=== PATIENT | female | born 1950 | race Caucasian/White ===

== ENCOUNTER 2020-01-16 11:49 | Day surgery (SDC) | payer MEDICARE, OTHER ==
[~2020-01-16 11:49] MED LIST: CHONDR SU A NA/HYALUR INTRAOC KIT (SURGICARE) ONE; EPINEPHRINE INJ/PF 1 MG/1 ML AMPULE ONE; KETOROLAC TROMETHAMINE 0.45% 4 DROP/0.4 ML DROPERETTE OS PRN; LIDOCAINE 1%/PHENYLEPHRINE 1.5% 0.8 ML SYRINGE ONE
[2020-01-16] MEDS: BESIFLOXACIN HCL 0.6% OPH SUSP 5 ML BOTTLE OS PRN ×4 (12:05→12:55)
[2020-01-16] MEDS: CYCLOPENTOLATE 0.2%/PHENYLEPHRINE 1% OPH SOLN 2 ML OS PRN ×3 (12:05→12:29)
[2020-01-16] MEDS: TETRACAINE HCL 0.5% OPH SOLN 4 ML OS PRN ×3 (12:05→12:41)
[2020-01-16] MEDS: TROPICAMIDE 1% OPH SOLN 15 ML OS PRN ×3 (12:05→12:29)
[2020-01-16] MEDS ORDERED: FENTANYL CITRATE INJ/PF 100 MCG/2 ML AMPUL ONE (12:25)
[2020-01-16] MEDS ORDERED: MIDAZOLAM 2 MG/2 ML INJ ONE (12:25)
[2020-01-16] MEDS: DORZOLAMIDE HCL 2%/TIMOLOL MALEAT 0.5% OPH SOLN 10 ML OS PRN ×2 (12:55)
[2020-01-16] MEDS: PREDNISOLONE ACETATE 1% OPH SUSP 5 ML OS PRN ×2 (12:55)
--- NOTE | 2020-01-16 13:03 | Operative Report ---
Operative Report-[facility] Operative Report: DATE OF SURGERY: January 16, 2020 PREOPERATIVE DIAGNOSIS: NUCLEAR CATARACT, LEFT EYE. POSTOPERATIVE DIAGNOSIS: NUCLEAR CATARACT, LEFT EYE. PROCEDURE PERFORMED: PHACOEMULSIFICATION WITH POSTERIOR CHAMBER INTRAOCULAR LENS IMPLANT, LEFT EYE. SURGEON: Elkin Jara DO MEDICATIONS AND ANESTHESIA: Versed: IV Versed Tetracaine drops: 1 to 2 drops given as needed COMPLICATION: None INDICATIONS FOR SURGERY: Medical necessity: Best corrected visual acuity worse than 20/40 secondary to cataracts with impairment of ability to carry out needs or desired activities, blurred vision, visual distortion, reduced contrast sensitivity and/or glare with association functional impairment and supporting documentation/testing, and cataracts causing symptomatic impairment of visual functions not corrected with tolerable changes in glasses or contact lenses interfering with activities of daily life. PROCEDURE: Consent: The risks, benefits and alternatives of this procedures was discussed with the patient. The patient read and signed the consent forms, was identified and was seated in the exam chair. IOL: MX 60 E 16.5 IOL Diopters: Phacoemulsification with posterior chamber intraocular lens implant: The face was prepped with 5% povidone iodine solution, and a few drops of 5% povidone iodine solution was instilled into the inferior fornix. A non-fenestrated drape was placed over the eye and the lids were parted with the speculum. A paracentesis was made with a 15 degree blade, and 1% lidocaine MPF followed by viscoelastic was injected into the anterior chamber. A 2.4 mm metal micro- keratome was used to create a temporal clear corneal incision. A circular anterior capsulorrhexis was created, followed by hydro-dissection and hydro- delineation. The phacoemulsification hand piece was inserted and the nucleus was removed with the Phaco chop technique. The irrigation-aspiration hand piece was used to remove the residual cortex, and vacuum the posterior capsule. The capsular bag was inflated and viscoelastic and the above-mentioned IOL was injected into the eye with care to insert both leaning and trailing haptics in the capsular bag. The irrigation/aspiration hand piece was reinserted to remove residual viscoelastic from the capsular bag and anterior chamber. The corneal incision was hydrated, and anterior chamber was inflated with sterile BSS via the paracentesis site, and found to be watertight. Postop medication:1 drop of prednisolone into operative by followed by 1 drop of Cosopt into operative eye followed by 1 drop of Besivance intraoperative by Other:
== END 2020-01-16 13:24 | disposition home or self-care (01) ==
LOC: SC 11:49
PROVIDERS: ATTEND Ophthalmology
DX: H25.12 Age-related nuclear cataract, left eye (principal); Z87.891 Personal history of nicotine dependence; J45.909 Unspecified asthma, uncomplicated; K21.9 Gastro-esophageal reflux disease without esophagitis; I10 Essential (primary) hypertension; Z88.2 Allergy status to sulfonamides; Z83.511 Family history of glaucoma; Z83.3 Family history of diabetes mellitus; Z82.49 Family history of ischemic heart disease and other diseases of the circulatory system; M19.90 Unspecified osteoarthritis, unspecified site; D57.1 Sickle-cell disease without crisis
CPT/HCPCS: 66984; 00142; V2632; J2250; J3490 ×3; A9270; J0171; J3010; 142

== ENCOUNTER 2020-01-30 09:05 | Day surgery (SDC) | payer MEDICARE, OTHER ==
[~2020-01-30 09:05] MED LIST changes: -CHONDR SU A NA/HYALUR INTRAOC KIT (SURGICARE) ONE; -EPINEPHRINE INJ/PF 1 MG/1 ML AMPULE ONE; +KETOROLAC TROMETHAMINE 0.45% 4 DROP/0.4 ML DROPERETTE OD PRN; -KETOROLAC TROMETHAMINE 0.45% 4 DROP/0.4 ML DROPERETTE OS PRN; -LIDOCAINE 1%/PHENYLEPHRINE 1.5% 0.8 ML SYRINGE ONE
[2020-01-30] MEDS: TROPICAMIDE 1% OPH SOLN 15 ML OD PRN ×3 (09:20→09:40)
[2020-01-30] MEDS: CYCLOPENTOLATE 0.2%/PHENYLEPHRINE 1% OPH SOLN 2 ML OD PRN ×3 (09:20→09:40)
[2020-01-30] MEDS: BESIFLOXACIN HCL 0.6% OPH SUSP 5 ML BOTTLE OD PRN ×4 (09:20→10:16)
[2020-01-30] MEDS: TETRACAINE HCL 0.5% OPH SOLN 4 ML OD PRN ×3 (09:21→09:58)
[2020-01-30] MEDS ORDERED: MIDAZOLAM 2 MG/2 ML INJ ONE (09:39)
[2020-01-30] MEDS ORDERED: FENTANYL CITRATE INJ/PF 100 MCG/2 ML AMPUL ONE (09:39)
[2020-01-30] MEDS: CHONDR SU A NA/HYALUR INTRAOC KIT (SURGICARE) ONE ×2 (10:05→10:08)
[2020-01-30] MEDS: LIDOCAINE 1%/PHENYLEPHRINE 1.5% 1 ML VIAL ONE ×2 (10:05→10:08)
[2020-01-30] MEDS: EPINEPHRINE INJ/PF 1 MG/1 ML AMPULE ONE ×2 (10:05→10:08)
[2020-01-30] MEDS: DORZOLAMIDE HCL 2%/TIMOLOL MALEAT 0.5% OPH SOLN 10 ML OD PRN ×2 (10:16)
[2020-01-30] MEDS: PREDNISOLONE ACETATE 1% OPH SUSP 5 ML OD PRN ×2 (10:16)
--- NOTE | 2020-01-30 15:23 | Operative Report ---
Operative Report-[facility] Operative Report: DATE OF SURGERY: January 30, 2020 PREOPERATIVE DIAGNOSIS: NUCLEAR CATARACT, RIGHT EYE. POSTOPERATIVE DIAGNOSIS: NUCLEAR CATARACT, RIGHT EYE. PROCEDURE PERFORMED: PHACOEMULSIFICATION WITH POSTERIOR CHAMBER INTRAOCULAR LENS IMPLANT, RIGHT EYE. SURGEON: Elkin Jara DO MEDICATIONS AND ANESTHESIA: Versed: IV Versed Tetracaine drops: 1 to 2 drops given as needed COMPLICATION: None INDICATIONS FOR SURGERY: Medical necessity: Best corrected visual acuity worse than 20/40 secondary to cataracts with impairment of ability to carry out needs or desired activities, blurred vision, visual distortion, reduced contrast sensitivity and/or glare with association functional impairment and supporting documentation/testing, and cataracts causing symptomatic impairment of visual functions not corrected with tolerable changes in glasses or contact lenses interfering with activities of daily life. PROCEDURE: Consent: The risks, benefits and alternatives of this procedures was discussed with the patient. The patient read and signed the consent forms, was identified and was seated in the exam chair. IOL: MX 60 E 16.5 IOL Diopters: Phacoemulsification with posterior chamber intraocular lens implant: The face was prepped with 5% povidone iodine solution, and a few drops of 5% povidone iodine solution was instilled into the inferior fornix. A non-fenestrated drape was placed over the eye and the lids were parted with the speculum. A paracentesis was made with a 15 degree blade, and 1% lidocaine MPF followed by viscoelastic was injected into the anterior chamber. A 2.4 mm metal micro- keratome was used to create a temporal clear corneal incision. A circular anterior capsulorrhexis was created, followed by hydro-dissection and hydro- delineation. The phacoemulsification hand piece was inserted and the nucleus was removed with the Phaco chop technique. The irrigation-aspiration hand piece was used to remove the residual cortex, and vacuum the posterior capsule. The capsular bag was inflated and viscoelastic and the above-mentioned IOL was injected into the eye with care to insert both leaning and trailing haptics in the capsular bag. The irrigation/aspiration hand piece was reinserted to remove residual viscoelastic from the capsular bag and anterior chamber. The corneal incision was hydrated, and anterior chamber was inflated with sterile BSS via the paracentesis site, and found to be watertight. Postop medication: 1 drop of prednisolone into operative by followed by 1 drop of Cosopt into operative eye followed by 1 drop of Besivance intraoperative by other:
== END 2020-01-30 10:56 | disposition home or self-care (01) ==
LOC: SC 09:05
PROVIDERS: ATTEND Ophthalmology
DX: H25.11 Age-related nuclear cataract, right eye (principal); Z98.42 Cataract extraction status, left eye; Z87.891 Personal history of nicotine dependence; J45.909 Unspecified asthma, uncomplicated; K21.9 Gastro-esophageal reflux disease without esophagitis; I10 Essential (primary) hypertension
CPT/HCPCS: 66984; V2632; J2250; J3490 ×2; A9270; J0171; 142; J3010

== ENCOUNTER → 2020-03-13 | Outpatient (CLI) | payer MEDICARE, OTHER ==
--- NOTE | 2020-03-13 13:28 | WOMENS IMAGING REPORT ---
EXAM DESCRIPTION: BONE DENSITY HIP/SPINE IMAGES COMPLETED DATE/TIME: 03/13/2020 1:04 pm REASON FOR STUDY: M81.0 AGE-RELATED OSTEOPOROSIS W/O CURRENT PATHOLOGICAL FRACTURE M81.0 AGE-RELATE D OSTEOPOROSIS W/O CURRENT PATHOLOGICAL FRAC Z12.31 ENCNTR SCREEN MAMMOGRAM FOR MALIGNANT NEOPLASM O F JAKE COMPARISON: None. TECHNIQUE: Dual-Energy X-ray Absorptiometry (DEXA) of the AP Spine and Hip. LIMITATIONS: None. FINDINGS: LUMBAR SPINE: The bone mineral density (BMD) measured from L1-L4 in the AP projection correlates with a T-score of -2.1, which is osteopenia as defined by the World Health Organization. BMD Change vs Baseline: N/A HIP: The bone mineral density (BMD) measured in the left hip correlates with a T-score of -0.9 in the femo ral neck, which is normal as defined by the World Health Organization. BMD Change vs Baseline: N/A 10 year Fracture Risk Assessment: Major Osteoporotic Fracture: Not available. Hip Fracture: Not available. IMPRESSION: 1. LUMBAR SPINE WHO CLASSIFICATION: OSTEOPENIA. 2. HIP WHO CLASSIFICATION: NORMAL. OVERALL ASSESSMENT: WHO CLASSIFICATION: NORMAL. COMMENT: The World Health Organization defines low BMD as follows: T-score: Normal: At or above -1.0 Osteopenia: Between -1.0 and -2.5 Osteoporosis: At or below -2.5 without fractures Established osteoporosis: At or below -2.5 with fractures In general, you may wish to consider: Diagnosis Treatment Follow-up DEXA Normal BMD Prevention 2-3 years Osteopenia Prevention/Therapy 1-2 years Osteoporosis Therapy Yearly TECHNICAL DOCUMENTATION: JOB ID: [id number] [employer]- All Rights Reserved Reading location - IP/workstation name: [email or web address]
--- OUTSIDE RECORDS SUMMARY | 2020-03-14 15:27 | XMS REPORT ---
:1950 Demographics Address [address] [place] [address] Email Address Preferred Language [id number] Marital Status Unknown Christian Affiliation Unknown Race Unknown Additional Race(s) Unavailable Unavailable Ethnic Group Unknown Author Organization [facility] Address [facility] [address] [place] [address] Care Team Providers Name Role Phone Saman JOHNSON Attending Clinician Unavailable Iain Attending Clinician Unavailable TANJA HU Attending Clinician Unavailable Silvio GARCIA Attending Clinician Unavailable Allergies, Adverse Reactions, Alerts Allergy Allergy Status Severity Reaction(s) Onset Inactive Treating C omments Name Type Date Date Clinician AMOXICILLIN Drug Active Unknown allergy - 00:00: 00 ESTROGENS, Drug Active Unknown CONJUGATED allergy 05-31 00:00: 00 amoxicillin Allergy to Active Unknown ([id number] substance 6-05 ) 00:00: 00 Horse Allergy to Active Mild dander substance 6-05 00:00: 00 Sulfa Allergy to Active Mild (Sulfonamid substance 6-05 e 00:00: Antibiotics 00 ) ([id number] ) HORMONES Allergy to Active Mild SYNTH substance - 00:00: 00 Sulfa Allergy to Inactive Mild UNKNOWN (Sulfonamid Substance e Antibiotics ) ([id number] ) Medications Ordered Filled Start Stop Current Ordering Indication Dosage Frequency Signature Comments Components Medication Medication Date Date Medication? Clinician (SIG) Name Name Acetaminoph 2019- No 1 Every 6 en/Hydrocod 6-05 06-06 Hours as one Bitart 11:56: 00:00 needed for (Ohiopyle*) 00 :00 Pain 5/325MG TAB Acetaminoph No Kaitlynn Anguiano 1 Every 6 en/Hydrocod 6-05 Nayan Bashir Hours as one Bitart 00:00: needed for (Ohiopyle*) 00 Pain 5/325MG Tab Acetaminoph 2018- No 1 Every 4 en/Hydrocod 9- 06-05 Hours as one Bitart 13:32: 00:00 needed for (Ohiopyle*) 5 00 :00 Pain Mg/325 Mg TAB Naproxen No 500 Twice Per (Naprosyn*) 01-28 Day 500 Mg 13:32: 00:00 TABLET 00 :00 Acetaminoph No Brayan M 1 Every 4 en/Hydrocod 01-28 Pa-C Hours as one Bitart 00:00: 00:00 Ryan needed for (Ohiopyle*) 5 00 :00 Pain Mg/325 Mg Tab, 1 Tab Oral Naproxen No Brayan M 500 Twice Per (Naprosyn*) 01-28 Pa-C Day 500 Mg 00:00: 00:00 Ryan Tablet, 500 00 :00 Mg Oral Acetaminoph No 1 Q 6-8 Hrs en/Hydrocod 12-29 Prn Pain one Bitart 11:56: 00:00 No driving (Hydrocodon 00 :00 or heavy -Acetaminop lifting. hen 5-500) May cause 5 Mg/500 Mg drowsiness TAB . Ibuprofen No 1 Tid Prn (Motrin 800 12-29 Pain TAKE Mg) 800 Mg 11:56: 00:00 WITH FOOD TAB 00 :00 Trimethopri No 2 Twice Per m/Sulfameth 12-29 Day oxazole 11:56: 00:00 (Bactrim Ds 00 :00 Tablet) 1 Ea TAB Acetaminoph No Elkin C 1 Q 6-8 Hrs en/Hydrocod 12-29 Dellaria Prn Pain one Bitart 00:00: 00:00 Md (Hydrocodon 00 :00 -Acetaminop hen 5-500) 5 Mg/500 Mg Tab, 1 Tablet Oral Ibuprofen No Elkin Lozada 1 Tid Prn (Motrin 800 12-2905 Dellaria Pain Mg) 800 Mg 00:00: 00:00 Md Tab, 1 00 :00 Tablet Oral Trimethopri No Elkin C 2 Twice Per m/Sulfameth 12-29 Dellaria Day oxazole 00:00: 00:00 Md (Bactrim Ds 00 :00 Tablet) 1 Ea Tab, 2 Tablet Oral Alendronate No 35 Once Every Sodium Week (Fosamax*) 35 Mg Tablet Esomeprazol No 40 Daily e Magnesium Before (Nexium*) Breakfast 40 Mg Capcr Fluticasone No 2 Twice Per Propionate Day (Flovent 220 Mcg Hfa*) 120 Puff/12 Gm Aero Olmesartan/ No 1 Once Per Hctz Day (Benicar Hct 40/25MG*) 40 Mg/25 Mg Tab Zafirlukast No 20 Twice Per (Accolate*) Day 20 Mg Tablet Alendronate Yes 35 Once Every Sodium Week (Fosamax*) 35 Mg TABLET Fluticasone Yes 2 Twice Per Propionate Day (Flovent 220 Mcg Hfa*) 120 Puff/12 Gm AERO Metoprolol Yes 100 Once Per Succinate Day (Toprol Xl*) 100 Mg TAB.ER.24H Olmesartan Yes 40 Once Per (Benicar*) Day 40 Mg TABLET Omeprazole Yes 20 Daily (Prilosec*) Before 20 Mg CAPCR Breakfast Zafirlukast Yes 20 Twice (Accolate*) Daily 20 Mg Before TABLET Meals Esomeprazol 2020- No 40 Daily e Magnesium 06- Before (Nexium*) 00:00 Breakfast 40 Mg CAPCR :00 Olmesartan/ 2020- No 1 Once Per Hctz 10-05 Day (Benicar 00:00 Hct :00 40/25MG*) 40 Mg/25 Mg TAB Problems Condition Condition Condition Status Onset Resolution Last Treatin g Comments Name Details Category Date Date Treatment Clinician Date Knee Problem Inactiv contusion e 10-04 11:55: 00 Head injury Problem Inactiv e 01-28 13:32: 00 Neck strain Problem Inactiv e 01-28 13:32: 00 Sacral Problem Inactiv contusion e 01-28 13:32: 00 Thoracic Problem Inactiv compression e 01-28 fracture 13:32: 00 Wrist Problem Inactiv sprain e 01-28 13:32: 00 Contusion Contusion Problem Active of sacrum of sacrum Sprain of Sprain of Problem Active wrist wrist Injury of Injury of Problem Active head head Compression Compression Problem Active fracture of fracture of thoracic thoracic vertebra vertebra Strain of Strain of Problem Active neck muscle neck muscle Contusion Contusion Problem Active of knee of knee Fever Fever Problem Active Headache Headache Problem Active Procedures Procedure Date / Time Performed Performing Clinician Devi e Annual Wellness Visit, Initial 2020-02-05 10:30:00 Results Test Description Test Time Test Comments Text Results Atomic Results Result Comments Cerebrospinal fluid xanthochromia detection 2019-10-06 17:50:00 Test Item Value Reference Range Comments CSF Xanthochromia Comment (test code = 70165-7) NEGATIVE NEGATIVE Cerebrospinal fluid color zkrsapdyrdgyqk1062-61-34 17:50:00 Test Item Value Reference Range Comments CSF Color (test code = 40097-8) RED Cerebrospinal fluid appearance pgkzkeqxsft7047-43-56 17:50:00 Test Item Value Reference Range Comments CSF Appearance (test code = 32845-9) HAZY Manual cerebrospinal fluid white blood cell avhjd2935-56-03 17:50:00 Test Item Value Reference Range Comments CSF WBC (test code = 806-0) 9 0-5 A Di fferential will be performed on a Cell Count wit h>10 WBCs present. Cerebrospinal fluid erythrocyte gbcrg8132-81-21 17:50:00 Test Item Value Reference Range Comments CSF RBC (test code = 35141551) 6963 0-1 CSF Cell Count Tube #2019-10-06 17:50:00 Test Item Value Reference Range Comments CSF Cell Count Tube # (test code = CSF Cell Count Tube # 1 Tube #) Glucose [id number] 17:50:00 Test Item Value Reference Range Comments CSF Glucose (test code = 80605939) 56 40-70 Protein [id number] 17:50:00 Test Item Value Reference Range Comments CSF Total Protein (test code = 65219244) 92.5 15.0-40 .0 Blood leukocytes automated count (number/volume)2019-10-06 15:45:00 Test Item Value Reference Range Comments White Blood Count (test code = 6690-2) 10.3 3.6-11.1 Blood erythrocytes automated count (number/volume)2019-10-06 15:45:00 Test Item Value Reference Range Comments Red Blood Count (test code = 789-8) 4.42 3.69-4.88 Blood hemoglobin measurement (mass/volume)2019-10-06 15:45:00 Test Item Value Reference Range Comments Hemoglobin (test code = 718-7) 12.5 11.4-14.4 Automated blood hematocrit (volume fraction)2019-10-06 15:45:00 Test Item Value Reference Range Comments Hematocrit (test code = 4544-3) 38.4 33.3-41.4 Automated erythrocyte mean corpuscular bmsddo5720-51-23 15:45:00 Test Item Value Reference Range Comments Mean Corpuscular Volume (test code = 787-2) 87.0 79.3 -94.8 Automated erythrocyte mean corpuscular hemoglobin (mass per erythrocyte) 2019-10-06 15:45:00 Test Item Value Reference Range Comments Mean Corpuscular Hemoglobin (test code = 785-6) 28.3 26.8-33.2 Automated erythrocyte mean corpuscular hemoglobin concentration measurement (mass/volume)2019-10-06 15:45:00 Test Item Value Reference Range Comments Mean Corpuscular Hemoglobin Concent (test code = 32.5 33.5-35.5 786-4) Automated erythrocyte distribution width rtfcf3674-83-87 15:45:00 Test Item Value Reference Range Comments Red Cell Distribution Width (test code = 788-0) 15.2 12.0-15.1 Automated blood platelet count (count/volume)2019-10-06 15:45:00 Test Item Value Reference Range Comments Platelet Count (test code = 777-3) 314 165-353 Automated blood platelet mean volume fzyaepwurio8286-32-26 15:45:00 Test Item Value Reference Range Comments Mean Platelet Volume (test code = 52805-3) 7.8 7.5-1 0.6 Automated blood neutrophil count as percentage of total jknuefimwn0634-65-71 15:45:00 Test Item Value Reference Range Comments Neutrophils (%) (Auto) (test code = 770-8) 67.0 43.2- 71.5 Automated blood lymphocyte count as percentage of total fgvmlghbyp5058-09-07 15:45:00 Test Item Value Reference Range Comments Lymphocytes (%) (Auto) (test code = 736-9) 19.5 16.8- 43.4 Automated blood monocyte count as percentage of total aoptxskdqz2325-11-62 15:45:00 Test Item Value Reference Range Comments Monocytes (%) (Auto) (test code = 5905-5) 9.3 4.6-12 .4 Automated blood eosinophil count as percentage of total thvzcdjcmb2357-10-61 15:45:00 Test Item Value Reference Range Comments Eosinophils (%) (Auto) (test code = 713-8) 3.1 0.7-7 .8 Automated blood basophil count as percentage of total iinjzcnypy2365-24-60 15:45:00 Test Item Value Reference Range Comments Basophils (%) (Auto) (test code = 706-2) 1.1 0.2-1.2 Blood neutrophils automated count (number/volume)2019-10-06 15:45:00 Test Item Value Reference Range Comments Neutrophils # (Auto) (test code = 751-8) 6.9 1.9-7.2 Automated blood lymphocyte count (number/volume)2019-10-06 15:45:00 Test Item Value Reference Range Comments Lymphocytes # (Auto) (test code = 731-0) 2.0 1.1-2.7 Blood monocytes automated count (number/volume)2019-10-06 15:45:00 Test Item Value Reference Range Comments Monocytes # (Auto) (test code = 742-7) 1.0 0.3-0.8 Automated blood eosinophil qcrnc6316-34-96 15:45:00 Test Item Value Reference Range Comments Eosinophils # (Auto) (test code = 711-2) 0.3 0.0-0.5 Automated blood basophil count (count/volume)2019-10-06 15:45:00 Test Item Value Reference Range Comments Basophils # (Auto) (test code = 704-7) 0.1 0.0-0.1 Prothrombin time (PT) in platelet poor plasma by coagulation rurys6957-90-80 15:45:00 Test Item Value Reference Range Comments Prothrombin Time (test code = 5902-2) 13.0 10.8-14.2 INR in Platelet poor plasma by Coagulation cmrve2516-87-81 15:45:00 Test Item Value Reference Range Comments Prothromb Time International 0.94 INR Therapeutic Range:2.0-3.0 Ratio (test code = 6301-6) Oral Anticoagulant Therapy2.5-3.5 P rosthetic Heart Valves, Recurren t Systemic Embolism Sodium [Moles/volume] in Itnas5354-00-95 15:45:00 Test Item Value Reference Range Comments Sodium Level (test code = 2947-0) 142 137-144 Potassium [Moles/volume] in Serum or Ezunei6976-47-16 15:45:00 Test Item Value Reference Range Comments Potassium Level (test code = 2823-3) 3.7 3.1-5.1 Chloride cssbw8854-03-63 15:45:00 Test Item Value Reference Range Comments Chloride Level (test code = 922193336) 109 101-110 Carbon dioxide pbfbq1307-17-29 15:45:00 Test Item Value Reference Range Comments Carbon Dioxide Level (test code = 41940393) 24 23-3 1 Glucose [Moles/volume] in Serum or Khcttq3607-04-26 15:45:00 Test Item Value Reference Range Comments Glucose Level (test code = 09377-4) 108 70-105 RCP7287-28-91 15:45:00 Test Item Value Reference Range Comments Blood Urea Nitrogen (test code = 078905648) 12.0 9.8- 20.1 Creatinine jvlkt0998-86-83 15:45:00 Test Item Value Reference Range Comments Creatinine (test code = 395569103) 0.63 0.57-1.11 Estimation of creatinine qhrpywjom9269-85-71 15:45:00 Test Item Value Reference Range Comments Estimated Creatinine Clearance 88.24 P T Ht: 160.02cm, PT Wt: 87.2KG Calc (test code = 801662660) Anion gap nkdepngauuu8235-20-41 15:45:00 Test Item Value Reference Range Comments Anion Gap (test code = 10782860) 13 7-16 Uwzkqrd0633-05-51 15:45:00 Test Item Value Reference Range Comments Calcium Level (test code = 73781252) 8.4 8.4-10.2 Total ujmhdhwtz1592-91-92 15:45:00 Test Item Value Reference Range Comments Total Bilirubin (test code = JLO8277) 0.6 0.1-1.2 Total protein zdtbj6953-07-46 15:45:00 Test Item Value Reference Range Comments Total Protein (test code = 2885-2) 6.1 6.0-8.3 Httwxuu6780-16-66 15:45:00 Test Item Value Reference Range Comments Albumin (test code = OWX4164) 3.8 3.2-5.2 Plasma globulin measurement (mass/volume)2019-10-06 15:45:00 Test Item Value Reference Range Comments Globulin (test code = 36871-5) 2.3 2.6-4.6 Albumin to globulin xyort0698-90-11 15:45:00 Test Item Value Reference Range Comments Albumin/Globulin Ratio (test code = 081497) 1.7 1.1- 2.5 AST (SGOT) ser/ypfo0101-11-13 15:45:00 Test Item Value Reference Range Comments Aspartate Amino Transf (AST/SGOT) (test code = 12 5 -34 13904908) Alkaline kanugnjtpus4706-71-08 15:45:00 Test Item Value Reference Range Comments Alkaline Phosphatase (test code = 23078410) 65 40-1 50 ALT (SGPT) ser/nmyo0845-51-15 15:45:00 Test Item Value Reference Range Comments Alanine Aminotransferase (ALT/SGPT) (test code = 18 0-55 1742-6) Brain natriuretic ikifcjg3641-54-77 15:45:00 Test Item Value Reference Range Comments B-Type Natriuretic Peptide 17.9 0.0-100.0 Plasm a concentrations of (test code = 561359315) natriure tic peptides may be elevated in almita ents with acute myocardial infar ction and renal insufficiency. Lactic Acid (Sepsis)2019-10-06 15:45:00 Test Item Value Reference Range Comments Lactic Acid (Sepsis) (test code = Lactic Acid 0.70 0. 50-2.00 (Sepsis)) Serum or plasma creatinine measurement (mass/volume)2019-10-06 15:06:00 Test Item Value Reference Range Comments Bedside Creatinine (test code = 2160-0) 0.6 0.52-1.0 4 Color of Urine by Yhjd8297-08-50 15:00:00 Test Item Value Reference Range Comments Urine Color (test code = 10963-0) Yellow Urine clarity by refractometry fxruyddvq6022-49-06 15:00:00 Test Item Value Reference Range Comments Urine Appearance (test code = 19303-6) Clear Urine specific gravity measurement by automated test strip (relative density) 2019-10-06 15:00:00 Test Item Value Reference Range Comments Urine Specific Burtrum (test code = 09248-6) 1.010 1.0 05-1.030 Urine pH measurement by automated test llggf2788-47-61 15:00:00 Test Item Value Reference Range Comments Urine pH (test code = 24767-8) 6.0 5.0-8.0 Urine leukocyte esterase detection by automated test eybso7503-60-06 15:00:00 Test Item Value Reference Range Comments Urine Leukocyte Esterase (test code = 87622-2) NEGATIVE N EGATIVE Urine nitrite detection by automated test rilyu9470-83-92 15:00:00 Test Item Value Reference Range Comments Urine Nitrite (test code = 16773-4) NEGATIVE NEGATIVE Urine protein detection by automated test anwqr3660-03-66 15:00:00 Test Item Value Reference Range Comments Urine Protein (test code = 75363-4) NEGATIVE NEGATIVE Urine glucose detection by automated test yshkg0916-54-79 15:00:00 Test Item Value Reference Range Comments Urine Glucose (UA) (test code = 60207-2) NEGATIVE NEGATIV E Urine ketone detection by automated test iyago6186-73-20 15:00:00 Test Item Value Reference Range Comments Urine Ketones (test code = 83547-6) NEGATIVE NEGATIVE Urine urobilinogen measurement by automated test strip (mass/volume)2019-10-06 15:00:00 Test Item Value Reference Range Comments Urine Urobilinogen (test code = 48109-2) NEGATIVE NEGATIV E Urine bilirubin detection by automated test telgt5974-65-14 15:00:00 Test Item Value Reference Range Comments Urine Bilirubin (test code = 95710-0) NEGATIVE NEGATIVE Urine erythrocytes detection by automated rpcisu0234-76-42 15:00:00 Test Item Value Reference Range Comments Urine Blood (test code = 78296-2) NEGATIVE NEGATIVE Urine ascorbic acid iuibxtpfu6865-38-69 15:00:00 Test Item Value Reference Range Comments Urine Ascorbic Acid Level (test code = 1904-2) NEGATIVE POC Pqsofwl9416-68-37 14:54:00 Test Item Value Reference Range Comments POC Glucose (test code = POC Glucose) 104 74-106 RN Aware CAT RIZD0423-10-84 14:44:[address] [id number] Patient: ROMA CUNNINGHAM : 1950 Sex: F Address: [address] [place] [address] [facility] [place] [address] Unit #: [id number] REQ SEQ #: [id number] [place] [facility] [place] #: Ordering: JULITO MCCONNELL-BC Diagnosis: FEVER -------- CT HEAD WO CONTRAST History: FEVER FEVER SS Sepsis Multislice CT images are obtained through the brain. There is no evidence of intracranial hemorrhage, mass effect or midline shift. The ventricles are unremarkable. The paranasal sinuses and mastoid air cells are clear. Orbits are grossly unremarkable. Bony calvarium is within normal limits. Impression: No acute intracranial pathology. Final report electronically signed by: Taras Phipps MD Signed by: TARAS PHIPPS II, MD 10/06/19 2753 cc: TARAS PHIPPS II, MD, MEGAN FNP-BRJFMTXMRWN5600-77-67 14:38:[address] [id number] Patient: ROMA CUNNINGHAM : 1950 Sex: F Address: [address] [place] [address] [place] [address] Unit #: [id number] SEQ #: [id number] Location: [facility] [place] Room #: Ordering: JULITO KIMP-BC Diagnosis: FEVER -------- CHEST PORTABLE - 1 VIEW History: FEVER FEVER SS SEPSIS vision changes. non productive cough. Single view of the chest was obtained. The heart is normal. The lungs are clear. Vascularity is normal. Bony thorax is normal.There is nopneumothorax. Impression: No active disease. Final report electronically signedby: Taras Phipps MD Signed by: TARAS PHIPPS II, MD 10/06/19 9738 cc: TARAS PHIPPS II, MDJULITO LEGAL BILLING ANALYST-BC NMLLUJZRA5898-38-57 11:45:[address] [address] [id number] ------ Patient: ROMA CUNNINGHAM : 1950 Sex: F Address: [address] [place] [address] [place] [address] Unit #: [id number] [facility] SEQ #: [id number] Location: ED Room #: Ordering: KAITLYNN GARCIA MD Diagnosis: FALL/WRIST/KNEE PAIN KNEE RIGHT 1 OR 2 VIEWS History: FALL/WRIST/KNEE PAIN Single view of the right knee includes the sunrise view also of the left knee. No patellar subluxation. No patellar fracture. There is underlying osteoarthrosis. Soft tissue swelling along the lateral aspect. IMPRESSION: No patellar dislocationor subluxation. No patellar fracture identified. Final report electronically signed by: Taras Phipps MD Signed by: TARAS PHIPPS II, MD 10/04/17 1141 cc: MADISON GAN,KAITLYNN REYNOSO MD MDRADIOLOGY 2017-10-04 08:53:[address] [address] [id number] ------ Patient: ROMA CUNNINGHAM : 1950 Sex: F Address: [address] [place] [address] [place] [address] Unit #: [id number] REQ SEQ #: [id number] Location: ED Room #: Ordering: YULISSA MORALES DO Diagnosis: FALL/WRIST/KNEE PAIN --------- KNEE RIGHT 1 OR 2 VIEWS, HAND RIGHT 3 VIEWS Clinical Information: FALL/WRIST/KNEE PAIN Comparison: None Right knee: AP and lateral views of the right knee. Mineralization within normal limits. There is no evidence for acute fracture or subluxation. Mild/moderate tricompartment osteoarthritis greatest for the medial compartment. Soft tissue evaluation the lateral view is limited due to technique. IMPRESSION: Mild to moderate degenerative changes right knee without evidence for fracture. Right hand: 3 views of the right hand. Mineralization within normal limits. No evidence for acute fracture or dislocation. There is diffuse soft tissue swelling seen for the third digit greatest about the PIP joint which may related to sprain or contusion. Small soft tissue calcifications are seen for the second and third digits. Moderate osteoarthritic changes seen for the first carpometacarpal joint. Mild osteoarthritic changes interphalangeal joints most notably for the PIP joint of the second digit. IMPRESSION: 1. Soft tissue swelling without evidence for acute fracture or dislocation. 2. Mild to moderate degenerative changes. Final report electronically signed by: Davis Giles DO Signed by: GIOVANI GILES DO 10/04/17 0849 cc: GIOVANI GILESYULISSA HGTTWJMNXZK6570-50-29 08:53:[address] [address] [id number] ------ Patient: ROMA CUNNINGHAM : 1950 Sex: F Address: [address] [place] [address] [place] [address] [id number] Unit #: [id number] [facility] SEQ #: [id number] Location: ED Room #: Ordering: YULISSA MORALES DO Diagnosis: FALL/WRIST/KNEE PAIN --------- KNEE RIGHT 1 OR 2 VIEWS, HAND RIGHT 3 VIEWS Clinical Information: FALL/WRIST/KNEE PAIN Comparison: None Right knee: AP and lateral views of the right knee. Mineralization within normal limits. There is no evidence for acute fracture or subluxation. Mild/moderate tricompartment osteoarthritis greatest for the medial compartment. Soft tissue evaluation the lateral view is limited due to technique. IMPRESSION: Mild to moderate degenerative changes right knee without evidence for fracture. Right hand: 3 views of the right hand. Mineralization within normal limits. No evidence for acute fracture or dislocation. There is diffuse soft tissue swelling seen for the third digit greatest about the PIP joint which may related to sprain or contusion. Small soft tissue calcifications are seen for the second and third digits. Moderate osteoarthritic changes seen for the first carpometacarpal joint. Mild osteoarthritic changes interphalangeal joints most notably for the PIP joint of the second digit. IMPRESSION: 1. Soft tissue swelling without evidence for acute fracture or dislocation. 2. Mild to moderate degenerative changes. Final report electronically signed by: Davis Giles DO Signed by: GIOVANI GILES DO 10/04/17 0849 cc: GIOVANI GILES STEPHANIE DORADIOLOGY2018-06-05 08:21:[address] [id number] ------ Patient: ROMA CUNNINGHAM : 1950 Sex: F Address: [address] [place] [address] [place] [address] [id number] Unit #: [id number] REQ SEQ #: [id number] Location: ED Room #: Ordering: YULISSA MORALES DO Diagnosis: FALL/WRIST/KNEE PAIN --------- Clinical history: Status post fall TECHNIQUE: 2 views the right wrist FINDINGS: No fracture. Carpal bones are normal in alignment. Moderate arthropathy involves the first carpometacarpal joint with joint spacenarrowing and subchondral sclerosis. IMPRESSION: No acute fracture. Final report electronically signed by: Jesus Mayorga MD Signed by: JESUS MAYORGA MD 10/04/17 0816cc: JESUS MAYORGA MD, STEPHANIE DO Assessments Condition Name Status Diagnosis Date Treating Clinici an Encntr for general adult medical exam w/o Active abnormal findings Age-related osteoporosis w/o current Active pathological fracture Encntr screen mammogram for malignant Active neoplasm of breast Encounter for screening for malignant Active neoplasm of colon Encounters Start End Encounter Admission Attending Care Care Encounter Date/Time Date/Time Type Type Clinicians Facility Department ID 2010-11-05 Inpatient SAILAJA JOHNSON, [facility] [id number] 00:00:00 HU 00 2020-02-05 [id number] 10:30:00 [facility] [id number] and [id number] [facility], 2019-10-06 2019-10-06 Emergency ED MAYTE, [facility] [id number] 13:05:00 20:26:00 JULITO 99 2017-10-04 2017-10-04 Emergency ED GARCIA, [facility] [id number] 05:47:00 12:32:00 KAITLYNN 08 Immunizations Ordered Immunization Filled Immunization Date Status Commen ts Refusal Reason Name Name Vaccination Unknown Completed Payers Payer Name Policy Type Policy Number Effective Date Expiration D ate Plan of Treatment Planned Activity Planned Date Details Comments Future Scheduled Test [code = ] Social History Social Habit Start Date Stop Date Comments No 2015-01-28 10:41:00 Smoking Status Start Date Stop Date Never smoker Social History Observation Description Sex Female Vital Signs Vital Name Observation Time Observation Value Comments WEIGHT 2019-10-06 13:07:00 87.2000 kg HEIGHT 2019-10-06 13:07:00 160.415587 cm WEIGHT 2017-10-04 05:47:00 86.3000 kg HEIGHT 2017-10-04 05:47:00 160.765819 cm Weight 2019-10-06 13:07:00 192.24 [lb_av] BMI (Body Mass Index) 2019-10-06 13:07:00 34.0 kg/m2
== END ==
LOC: WI 12:27
PROVIDERS: ATTEND Physician Assistant Medical
DX: Z12.31 Encounter for screening mammogram for malignant neoplasm of breast (principal); M81.0 Age-related osteoporosis without current pathological fracture
CPT/HCPCS: 77063; 77067; 77080

== ENCOUNTER 2020-05-20 06:58 | Day surgery (SDC) | payer MEDICARE, OTHER ==
[2020-05-20] MEDS ORDERED: PROPOFOL INJ 200 MG/20 ML VIAL IV ONE (07:36)
--- NOTE | 2020-05-20 10:46 | Operative Report ---
Operative Report DATE OF SURGERY: 05/20/20 Operative Report: The risk, benefits and alternatives of the procedure including the risk of bleeding, perforation requiring surgery have been explained to the patient in detail and informed consent has been obtained. Patient is brought back to the operating room and placed in left, lateral decubital position. Timeout was called. Propofol medication is administered. Rectal examination is done which did not reveal any masses, tears or fissures. An Olympus videoscope was introduced into the patient's rectum the scope was then carefully advanced all the way to the cecum. Cecum was identified by the usual anatomical landmarks including the ileocecal valve as well as appendiceal office. Photodocumentation is obtained the scope was then sequentially pulled back via the various segments of the colon including the ascending colon, hepatic flexure, transverse colon, splenic flexure, descending colon and finally into the rectosigmoid portions of the colon. Retroflexion maneuvers performed. The risks benefits and alternatives of the procedure explained to the patient in detail and informed consent is obtained.A GIF Olympus video scope was inserted into the patient's mouth and hypopharynx ,the esophagus is identified intubated and insufflated, the scope was then advanced through the esophagus stomach and duodenum, retroflexion maneuver is done, the esophagus stomach and first and second portions of the duodenum examined PREOPERATIVE DIAGNOSIS: Personal history of polyp. gastroesophageal reflux disease POSTOPERATIVE DIAGNOSIS: Esophagitis versus Clifton's status post biopsy. Gastritis status post biopsy. Mild inflammation noted on the right-hand side of the colon status post biopsy. Internal hemorrhoids. Diverticulosis without any evidence of diverticulitis OPERATION: Colonoscopy with biopsy. EGD with biopsy SURGEON: GRETA CABALLERO ANESTHESIA: LMAC TISSUE REMOVED OR ALTERED: As noted above. COMPLICATIONS: None. ESTIMATED BLOOD LOSS: None. INTRAOPERATIVE FINDINGS: As noted above. PROCEDURE: Patient tolerated the procedure well. No immediate postprocedure complications are noted. Patient is discharged in good condition. Discharge date 05/20/2020. Discharge diet: Regular. Discharge activity: Regular. 2 to 3-week follow-up to discuss findings. Patient is instructed to call the office or proceed to the emergency room should there be any further problems or questions. Wait on the pathology. 5-year surveillance colonoscopy.
[2020-05-20 10:49] VITALS: BP 111/79
== END 2020-05-20 11:30 ==
LOC: OROUT 06:58
PROVIDERS: ATTEND Internal Medicine Gastroenterology
DX: K29.70 Gastritis, unspecified, without bleeding (principal); K21.00 Gastro-esophageal reflux disease with esophagitis, without bleeding; K52.9 Noninfective gastroenteritis and colitis, unspecified; K64.8 Other hemorrhoids; K57.90 Diverticulosis of intestine, part unspecified, without perforation or abscess without bleeding; Z79.899 Other long term (current) drug therapy; Z90.49 Acquired absence of other specified parts of digestive tract; Z86.010 Personal history of colon polyps; M81.0 Age-related osteoporosis without current pathological fracture; I10 Essential (primary) hypertension; J45.909 Unspecified asthma, uncomplicated
CPT/HCPCS: 43239; 45380; 88342 ×2; 88305 ×2; J2704; 813